=== PATIENT | male | born 1950 | race Caucasian/White ===

== ENCOUNTER 2016-12-26 08:37 | Day surgery (SDC) | payer BC, OTHER ==
[2016-12-25 12:11] VITALS: BMI 21.2
[2016-12-26] MEDS ORDERED: DESFLURANE GAS 240 ML BOTTLE IH ONE (10:25)
[2016-12-26] MEDS ORDERED: MIDAZOLAM HCL 2 MG/2 ML SINGLE DOSE VIAL ONE (10:26)
[2016-12-26] MEDS ORDERED: PROPOFOL 20 ML ONE ×4 (10:27→10:54)
[2016-12-26] MEDS ORDERED: ceFAZolin SODIUM 1 GM VIAL IVPB ONE (10:35)
[2016-12-26] MEDS ORDERED: BUPIVACAINE HCL/PF 0.25% (2.5MG/ML) 10 ML VIAL IJ ONE ×3 (11:01→11:07)
[2016-12-26] MEDS ORDERED: BUPIVACAINE HCL/PF 0.25% (2.5MG/ML) 10 ML VIAL ONE (11:05)
[2016-12-26] MEDS ORDERED: BACITRACIN 15 GM TUBE TOPICAL OINTMENT ONE (11:15)
[2016-12-26] MEDS ORDERED: BACITRACIN 15 GM TUBE TOPICAL OINTMENT TP ONE (11:16)
--- NOTE | 2016-12-26 11:26 | OP ---
Operative Note - Note: Operative Date: 12/26/16 Pre-Operative Diagnosis: left hydrocele Operation: left hydrocelectomy Findings: left hydrocele Post-Operative Diagnosis: Same as Pre-op Surgeon: Delfin Mix Anesthesia: General Specimens Removed: hydrocele sac Estimated Blood Loss (mls): 5 Drains & Tubes with Location: [facility]
[2016-12-26] MEDS ORDERED: oxyCODONE HCL 5 MG TABLET PO PRN ×2 (11:27→11:38)
[2016-12-26] MEDS ORDERED: DEXTROSE 5%-0.45% SALINE 1,000 ML IV SCH (11:30)
[2016-12-26] MEDS ORDERED: ONDANSETRON 4 MG/2 ML VIAL IVPUSH PRN (11:38)
[2016-12-26] MEDS ORDERED: LACTATED RINGERS SOLUTION 1,000 ML IV SCH (11:45)
--- NOTE | 2016-12-26 12:40 | OP ---
DATE OF OPERATION: 12/26/2016 PREOPERATIVE DIAGNOSIS: Large left hydrocele. POSTOPERATIVE DIAGNOSIS: Large left hydrocele. PROCEDURE: Left hydrocelectomy. SURGEON: Ana M Grant MD INDICATIONS: Patient is a 66-year-old male with symptomatic left hydrocele who elected to undergo a hydrocelectomy. Risks, benefits, and alternatives were discussed, understanding the risks of bleeding, infection, hematoma formation, recurrence of hydrocele, persistence of pain and potential need for additional procedures. DESCRIPTION OF PROCEDURE: After informed consent was obtained, the patient was taken to the OR, placed supine on the operating room table. After cardiac monitoring administered and general anesthesia established, the left hemiscrotum was prepped and draped in standard surgical fashion. An approximately 5-cm transverse lizzeth-scrotal incision was created with a No. 15 blade through the skin, and then, using cautery, the dartos layer was incised until the tunica vaginalis was identified. Tunica vaginalis was then from the scrotum, and the hydrocele sac was delivered. The hydrocele sac was then incised and drained. Most of the sac was excised using cautery, and then, the sac was everted and sutured in the everted position using interrupted chromic sutures. All bleeding sites were cauterized. Testicle was then placed back in its normal anatomic position. A [place] drain was placed adjacent to the testicle, and the dartos layer was closed with interrupted 3-0 chromic suture, and the skin was closed with interrupted 3-0 chromic suture in a mattress fashion. port was then placed. Patient was awoken from anesthesia and transferred to the recovery room in stable condition. There were no complications. ESTIMATED BLOOD LOSS: Minimal. ANA M GRANT M.D. LUIS [id number]
[2016-12-26 12:44] VITALS: TEMP 97.9
[2016-12-26 14:00] VITALS: BP 124/66; PULSE 71
--- NOTE | 2016-12-27 15:29 | PATH ---
Surgical Pathology Report Patient Name: VICKI IBARRA [facility]. Rec. #: [id number] /Age/Gender: 1950 (Age: 66) / M Account: [id number] Location: [facility] SURGICAL Taken: 12/26/2016 Received: 12/26/2016 Reported: 12/27/2016 Physicians: Delfin Mix M.D. Specimen(s) Received HYDROCELE SAC Clinical History Left hydrocele Final Diagnosis HYDROCELE SAC, LEFT, HYDROCELECTOMY: BENIGN, FOCALLY MESOTHELIAL LINED FIBROMEMBRANOUS TISSUE CONSISTENT WITH HYDROCELE SAC. Electronically Signed Dario Orantes M.D. Gross Description Received in formalin labeled "hydrocele sac" is a 6.5 x 3.5 x 0.1 cm ricardo, irregular portion of fibromembranous tissue, consistent with a hydrocele sac. Supervisor Shuttle Fitting sections are submitted in one cassette. /12/26/201612/26/2016
--- NOTE | 2016-12-27 15:36 | PATH ---
Cytology Non-Gynecological Report Patient Name: VICKI IBARRA [facility]. Rec. #: [id number] /Age/Gender: 1950 (Age: 66) / M Account: [id number] Location: [facility] SURGICAL Taken: 12/26/2016 Received: 12/26/2016 Reported: 12/27/2016 Physicians: Delfin Mix M.D. Specimen(s) Received LEFT HYDROCELE FLUID Clinical History Left hydrocele Final Diagnosis HYDROCELE FLUID, LEFT: SATISFACTORY FOR EVALUATION. NO MALIGNANT CELLS IDENTIFIED. REACTIVE MESOTHELIAL CELLS WITH DEGENERATION AND INFLAMMATORY CELLS. Comment: Refer to [id number] for the surgical pathology results. Electronically Signed Dario Orantes M.D. Gross Description Received is 20 cc of yellow fluid fresh. One cytofunnel slide and one cell block are made.
== END 2016-12-26 16:00 | disposition home or self-care (01) ==
LOC: JASU-SURG 08:37
PROVIDERS: ATTEND Urology
PROC: 0VBG0ZZ Excision of Left Spermatic Cord, Open Approach (ICD-10-PCS; principal; 2016-12-26 10:30)
DX: N43.3 Hydrocele, unspecified (principal)
CPT/HCPCS: 88108; 88302-TC; 88305-TC; 94760